=== PATIENT | female | born 1985 | race Caucasian/White ===

== ENCOUNTER 2018-04-23 06:29 | Day surgery (SDC) | payer OTHER ==
[2018-04-23] MEDS ORDERED: CEFAZOLIN 1 GM INJ (07:00)
[2018-04-23] MEDS: LACTATED RINGER'S 1,000 ML IV* (07:02)
[2018-04-23] MEDS ORDERED: LIDOCAINE 2% (SDV) 5 ML INJ (08:08)
[2018-04-23] MEDS ORDERED: MIDAZOLAM 1 MG/ML 2 ML INJ (08:08)
[2018-04-23] MEDS ORDERED: SUCCINYLCHOLINE CHLORIDE 100 MG/5 ML SYG IV (08:08)
[2018-04-23] MEDS ORDERED: ROCURONIUM 50 MG INJ (08:08)
[2018-04-23] MEDS ORDERED: PROPOFOL 20 ML (08:08)
[2018-04-23] MEDS ORDERED: FENTAnyl 50 MCG/ML VIAL (08:11)
[2018-04-23] MEDS ORDERED: DEXAMETHASONE 4 MG/ML 1 ML INJ (08:29)
[2018-04-23] MEDS ORDERED: FAMOTIDINE 20 MG INJ (08:29)
[2018-04-23] MEDS ORDERED: ONDANSETRON 4 MG INJ (08:29)
[2018-04-23] MEDS: BUPIVACAINE 0.5%/EPI (SDV) 30 ML INJ (08:45)
[2018-04-23] MEDS ORDERED: SUGAMMADEX SODIUM 200 MG/2 ML VIAL IV (08:53)
[2018-04-23] MEDS ORDERED: KETOROLAC 30 MG INJ (08:57)
[2018-04-23] MEDS ORDERED: LACTATED RINGER'S 1,000 ML IV (09:09)
[2018-04-23] MEDS ORDERED: FENTAnyl 50 MCG/ML VIAL IV ×3 (09:30)
[2018-04-23] MEDS ORDERED: PROCHLORPERAZINE 10 MG INJ IV (09:30)
[2018-04-23] MEDS ORDERED: DIPHENHYDRAMINE 50 MG INJ IV (09:30)
[2018-04-23] MEDS ORDERED: MEPERIDINE 25 MG INJ IV (09:30)
[2018-04-23] MEDS ORDERED: ACETAMINOPHEN 325 MG TAB PO (09:30)
[2018-04-23] MEDS ORDERED: morphine 2 MG INJ IV (09:30)
[2018-04-23] MEDS ORDERED: IBUPROFEN 600 MG TAB PO (09:30)
[2018-04-23] MEDS ORDERED: HYDROmorphONE 1 MG/5 ML IV SYRINGE IV ×3 (09:30)
[2018-04-23] MEDS ORDERED: ONDANSETRON 4 MG INJ IV ×2 (09:30)
[2018-04-23] MEDS ORDERED: OXYCODONE/ACETAMINOPHEN (5/325) TAB PO ×2 (09:30)
== END 2018-04-23 11:24 | disposition home or self-care (01) ==
LOC: SDS 06:29
DX: Z30.2 Encounter for sterilization (principal)
CPT/HCPCS: 58670; 84703; 86850; 86900; 86901